=== PATIENT | male | born 1955 | race Two or more races ===

== ENCOUNTER → 2019-02-07 14:41 | Outpatient (CLI) | payer OTHER | END | disposition home or self-care (01) | LOC: LAB 14:41 | DX: N30.00 Acute cystitis without hematuria (principal) ==

== ENCOUNTER 2019-08-03 12:31 | Emergency (ER) | payer OTHER ==
[~2019-08-03] VITALS: Ht 170.2 cm; Wt 106.6 kg
[2019-08-03] MEDS ORDERED: COZAAR100 MG (12:36)
[2019-08-04] MEDS ORDERED: LOSARTAN POTAS100 MG (11:24)
[2019-08-04] MEDS ORDERED: BACLOFEN10 MG (11:25)
[2019-08-04] MEDS ORDERED: TYLENOL ARTHRI650 MG (11:25)
[2019-08-04] MEDS ORDERED: PERCOCET 5-3251 EACH PO (14:41)
[2019-08-04] MEDS ORDERED: SKELAXIN800 MG PO (14:41)
[2019-08-04] MEDS ORDERED: VOLTAREN100 GM TOP (14:41)
[2019-08-12] MEDS ORDERED: TRAMADOL HCL50 MG PO (11:01)
== END 2019-08-03 13:54 | disposition home or self-care (01) ==
LOC: ER 12:31
DX: M25.511 Pain in right shoulder (principal)

== ENCOUNTER 2019-08-04 10:53 | Emergency (ER) | payer OTHER ==
[~2019-08-04] VITALS: Ht 170.2 cm; Wt 107.5 kg
[~2019-08-04 10:53] MED LIST: COZAAR100 MG
[2019-08-04] MEDS ORDERED: LOSARTAN POTAS100 MG (11:24)
[2019-08-04] MEDS ORDERED: TYLENOL ARTHRI650 MG (11:25)
[2019-08-04] MEDS ORDERED: BACLOFEN10 MG (11:25)
[2019-08-04] MEDS ORDERED: SKELAXIN800 MG PO (14:41)
[2019-08-04] MEDS ORDERED: PERCOCET 5-3251 EACH PO (14:41)
[2019-08-04] MEDS ORDERED: VOLTAREN100 GM TOP (14:41)
[2019-08-12] MEDS ORDERED: TRAMADOL HCL50 MG PO (11:01)
== END 2019-08-04 14:50 | disposition home or self-care (01) ==
LOC: ER 10:53
DX: M62.830 Muscle spasm of back (principal); M25.511 Pain in right shoulder; M54.89 Other dorsalgia